=== PATIENT | male | born 1990 | race African-American/Black ===

== ENCOUNTER 2021-05-15 23:56 | Emergency (ER) | payer MEDICAID ==
[~2021-05-15] VITALS: Ht 165.1 cm; Wt 108.4 kg
[2021-05-16 00:05] VITALS: BP_SYST 124
[2021-05-16] MEDS ORDERED: SULFAMETHOXAZOLE/TRIMETHOPR DS 1 TABLET ONE (01:11)
[2021-05-16] MEDS ORDERED: metroNIDAZOLE 500 MG TABLET ONE (01:11)
[2021-05-16 01:15] VITALS: BP_SYST 124
[2021-05-16] MEDS ORDERED: SULFAMETHOXAZOLE/TRIMETHOPR DS 1 TABLET PO ONE (01:15)
[2021-05-16] MEDS ORDERED: metroNIDAZOLE 500 MG TABLET PO ONE (01:15)
== END 2021-05-16 01:15 | disposition home or self-care (01) ==
LOC: SED 23:56
DX: L02.31 Cutaneous abscess of buttock (principal); F12.90 Cannabis use, unspecified, uncomplicated; F17.290 Nicotine dependence, other tobacco product, uncomplicated
CPT/HCPCS: 99283